=== PATIENT | male | born 1970 | race African-American/Black ===

== ENCOUNTER 2020-10-25 10:09 | Emergency (ER) | payer MEDICAID ==
[~2020-10-25] VITALS: Ht 172.7 cm; Wt 68.0 kg
[2020-10-25 10:30] VITALS: BP 148/68
[2020-10-25] MEDS ORDERED: METHOCARBAMOL 500 MG TAB PO ONE (11:00)
== END 2020-10-25 11:33 | disposition home or self-care (01) ==
LOC: ER 10:09
DX: M54.5 Low back pain (principal); Z95.1 Presence of aortocoronary bypass graft

== ENCOUNTER 2021-08-14 08:49 | Emergency (ER) | payer MEDICAID ==
[~2021-08-14] VITALS: Ht 172.7 cm; Wt 65.8 kg
[2021-08-14] MEDS ORDERED: cloNIDine HCL 0.1 MG TAB PO ONE (09:00)
[2021-08-14] MEDS ORDERED: HYDROcodone-ACET 5/325MG TAB PO ONE (09:45)
[2021-08-14 11:03] VITALS: BP 128/62
== END 2021-08-14 11:45 | disposition home or self-care (01) ==
LOC: ER 08:49
DX: M16.11 Unilateral primary osteoarthritis, right hip (principal); I10 Essential (primary) hypertension; Z95.1 Presence of aortocoronary bypass graft
CPT/HCPCS: 73502

== ENCOUNTER 2021-09-19 11:11 | Emergency (ER) | payer MEDICAID ==
[~2021-09-19] VITALS: Ht 172.7 cm; Wt 65.8 kg
[2021-09-19 11:13] VITALS: BP 121/101
[2021-09-19] MEDS ORDERED: SODIUM CHLORIDE 0.9% 1,000 ML IV ONE (12:15)
[2021-09-19 12:27] LABS: Basophils # (auto) 0.1 10 ^3/uL (0-0.2); Eosinophils # (auto) 0 10 ^3/uL (0-0.8); Eosinophils % (auto) 0.8 % (0.0-7.0); Hemoglobin 13.8 g/dL (13.5-17.5); Nucleated Red Blood Cells % 0.1 %
[2021-09-19 12:37] LABS: Hematocrit 41.5 % (41.0-53.0); Lymphocytes # (auto) 0.8 10 ^3/uL (0.4-5.4); Lymphocytes % (auto) 13.1 % (10.0-50.0); Mean Corpuscular Hemoglobin 29.1 pg (28.0-32.0); Mean Corpuscular Hgb Conc. 33.2 g/dL (32.0-36.0); Mean Corpuscular Volume 87.5 fL (80.0-100.0); Monocytes # (auto) 0.8 10 ^3/uL (0-1.3); Monocytes % (auto) 13.2 % (0.0-12.0); Neutrophils # (auto) 4.3 10 ^3/uL (1.6-8.6); Neutrophils % (auto) 71.9 % (37.0-80.0); Red Blood Cells 4.74 10^6/uL (4.5-5.90); Red Cell Distribution Width 14.7 % (11.8-14.3)
[2021-09-19 13:50] LABS: Potassium 4.3 mmol/L (3.5-5.1)
[2021-09-19 13:54] LABS: BUN/Creatinine Ratio 8.7; Bilirubin, Total 0.4 mg/dL (0.2-1.0); Total Protein 8.2 g/dL (6.4-8.2)
[2021-09-19 14:22] LABS: Urine Bacteria NONE SEEN /hpf (None Seen); Urine Blood Negative /uL (Negative); Urine Mucus FEW (None Seen); Urine Specific Gravity 1.024 (1.001-1.035); Urine WBC <1 /hpf (0 - 3)
== END 2021-09-19 16:29 | disposition home or self-care (01) ==
LOC: ER 11:11
DX: B34.9 Viral infection, unspecified (principal); I10 Essential (primary) hypertension; Z95.1 Presence of aortocoronary bypass graft; Z20.822 Contact with and (suspected) exposure to COVID-19
CPT/HCPCS: 36415; 71046; 80053; 81001; 84484; 85025; 87426; 93005; 96360; 96361; 99285; J7030

== ENCOUNTER 2021-11-04 00:15 | Inpatient (IN) | payer MEDICARE, MEDICAID ==
[~2021-11-04] VITALS: Ht 172.7 cm; Wt 65.3 kg
[2021-11-04 01:27] LABS: Basophils # (auto) 0.1 10 ^3/uL (0-0.2); Basophils % (auto) 1.6 % (0.0-2.0); Eosinophils # (auto) 0.1 10 ^3/uL (0-0.8); Eosinophils % (auto) 0.9 % (0.0-7.0); Hematocrit 40.6 % (41.0-53.0); Lymphocytes # (auto) 3.3 10 ^3/uL (0.4-5.4); Lymphocytes % (auto) 46.1 % (10.0-50.0); Mean Corpuscular Hemoglobin 30.1 pg (28.0-32.0); Mean Corpuscular Hgb Conc. 34.5 g/dL (32.0-36.0); Mean Corpuscular Volume 87.3 fL (80.0-100.0); Monocytes # (auto) 0.6 10 ^3/uL (0-1.3); Monocytes % (auto) 7.7 % (0.0-12.0); Neutrophils # (auto) 3.1 10 ^3/uL (1.6-8.6); Neutrophils % (auto) 43.7 % (37.0-80.0); Nucleated Red Blood Cells % 0.1 %; Red Blood Cells 4.65 10^6/uL (4.5-5.90); Red Cell Distribution Width 14.6 % (11.8-14.3); White Blood Cell 7.2 10^3/uL (4.4-10.8)
[2021-11-04 01:44] LABS: INR 0.94 (0.9-1.15); Partial Thromboplastin Time 27.8 sec (24.6-33.4)
[2021-11-04] MEDS ORDERED: SODIUM CHLORIDE 0.9% 500 ML IV ONE (01:45)
[2021-11-04] MEDS ORDERED: NITROGLYCERIN 0.4 MG SL TAB SL ONE (01:45)
[2021-11-04] MEDS ORDERED: ASPirin 325 MG TAB PO ONE (01:45)
[2021-11-04 01:50] LABS: Albumin 4.1 g/dL (3.4-5.0); BUN/Creatinine Ratio 12.5; Calcium 9.3 mg/dL (8.5-10.1); Magnesium 2.1 mg/dL (1.6-2.6); Potassium 4.1 mmol/L (3.5-5.1)
[2021-11-04 01:53] LABS: Bilirubin, Total 0.4 mg/dL (0.2-1.0); Total Protein 7.7 g/dL (6.4-8.2)
[2021-11-04] MEDS ORDERED: HEPARIN SODIUM (PORCINE) 5000 UNITS/ML 1ML VIAL IV ONE (10:00)
[2021-11-04] MEDS ORDERED: HEPARIN DRIP/D5W 100UNITS/ML 250 ML IV SCH (10:00)
[2021-11-04] MEDS ORDERED: ONDANSETRON HCL 4 MG/2 ML VIAL IV PRN (10:15)
[2021-11-04] MEDS ORDERED: DOCUSATE SOD 100 MG CAP PO PRN (10:15)
[2021-11-04] MEDS ORDERED: ACETAMINOPHEN 325 MG TAB PO PRN (10:15)
[2021-11-04] MEDS ORDERED: NITROGLYCERIN 0.4 MG SL TAB SL PRN (10:15)
[2021-11-04] MEDS ORDERED: MORPHINE SULFATE INJ 2 MG/ml SYRG IV PRN (10:15)
[2021-11-04 11:20] LABS: INR 0.98 (0.9-1.15); Partial Thromboplastin Time 28.5 sec (24.6-33.4)
[2021-11-04 11:38] LABS: Urine Bacteria NONE SEEN /hpf (None Seen); Urine Blood Negative /uL (Negative); Urine Mucus FEW (None Seen); Urine Specific Gravity 1.018 (1.001-1.035); Urine WBC <1 /hpf (0 - 3)
[2021-11-04 14:16] LABS: Basophils # (auto) 0 10 ^3/uL (0-0.2); Basophils % (auto) 0.7 % (0.0-2.0); Eosinophils # (auto) 0.1 10 ^3/uL (0-0.8); Eosinophils % (auto) 1.2 % (0.0-7.0); Hemoglobin 13.4 g/dL (13.5-17.5); Lymphocytes # (auto) 2.2 10 ^3/uL (0.4-5.4); Lymphocytes % (auto) 33.6 % (10.0-50.0); Mean Corpuscular Hemoglobin 28.6 pg (28.0-32.0); Mean Corpuscular Hgb Conc. 32.7 g/dL (32.0-36.0); Mean Corpuscular Volume 87.7 fL (80.0-100.0); Monocytes # (auto) 0.6 10 ^3/uL (0-1.3); Monocytes % (auto) 9.5 % (0.0-12.0); Neutrophils # (auto) 3.6 10 ^3/uL (1.6-8.6); Red Blood Cells 4.68 10^6/uL (4.5-5.90); Red Cell Distribution Width 14.6 % (11.8-14.3); White Blood Cell 6.5 10^3/uL (4.4-10.8)
[2021-11-04] MEDS: SODIUM CHLOR 0.9% PF (SALINE LOCK) 10ML VIAL/SYR IV SCH ×2 (14:29→23:06)
[2021-11-04 18:50] LABS: INR 0.98 (0.9-1.15)
[2021-11-04] MEDS: HEPARIN DRIP/D5W 100UNITS/ML 250 ML IV SCH (19:58)
[2021-11-04 21:39] VITALS: BP 149/96
[2021-11-04 22:00] VITALS: BP 149/96
[2021-11-04] MEDS: HYDROcodone-ACET 5/325MG TAB PO PRN (23:07)
[2021-11-05] VITALS (7 sets, daily range): BP systolic 130–167; BP diastolic 66–88
[2021-11-05] MEDS ORDERED: CARV3.1240 PO (00:17)
[2021-11-05] MEDS ORDERED: ASPI1TAB20 PO (00:17)
[2021-11-05] MEDS ORDERED: PRAV20TA3 GT (00:17)
[2021-11-05] MEDS ORDERED: CLOP75TA70 PO (00:17)
[2021-11-05] MEDS ORDERED: LOSA25TA38 PO (00:18)
[2021-11-05 02:12] LABS: Partial Thromboplastin Time 52.4 sec (24.6-33.4)
[2021-11-05] MEDS: SODIUM CHLOR 0.9% PF (SALINE LOCK) 10ML VIAL/SYR IV SCH ×3 (06:38→23:01)
[2021-11-05 09:36] LABS: INR 1.03 (0.9-1.15); Partial Thromboplastin Time 53.2 sec (24.6-33.4)
[2021-11-05] MEDS ORDERED: ATORVASTATIN 20 MG TAB PO ONE (09:45)
[2021-11-05] MEDS: ASPirin 81 mg TAB PO SCH (10:24)
[2021-11-05] MEDS: HEPARIN DRIP/D5W 100UNITS/ML 250 ML IV SCH (10:27)
[2021-11-05 10:39] LABS: Basophils # (auto) 0.1 10 ^3/uL (0-0.2); Basophils % (auto) 0.9 % (0.0-2.0); Eosinophils # (auto) 0.1 10 ^3/uL (0-0.8); Eosinophils % (auto) 1.2 % (0.0-7.0); Hematocrit 41.6 % (41.0-53.0); Hemoglobin 13.6 g/dL (13.5-17.5); Lymphocytes # (auto) 2.5 10 ^3/uL (0.4-5.4); Lymphocytes % (auto) 43.5 % (10.0-50.0); Mean Corpuscular Hemoglobin 28.8 pg (28.0-32.0); Mean Corpuscular Hgb Conc. 32.8 g/dL (32.0-36.0); Mean Corpuscular Volume 87.9 fL (80.0-100.0); Monocytes # (auto) 0.5 10 ^3/uL (0-1.3); Monocytes % (auto) 9.1 % (0.0-12.0); Neutrophils # (auto) 2.6 10 ^3/uL (1.6-8.6); Neutrophils % (auto) 45.3 % (37.0-80.0); Red Blood Cells 4.73 10^6/uL (4.5-5.90); Red Cell Distribution Width 14.8 % (11.8-14.3); White Blood Cell 5.8 10^3/uL (4.4-10.8)
[2021-11-05 10:47] LABS: Calcium 8.8 mg/dL (8.5-10.1); Potassium 3.8 mmol/L (3.5-5.1)
[2021-11-05 10:51] LABS: BUN/Creatinine Ratio 10.8
[2021-11-05] MEDS ORDERED: LABETALOL HCL 5 MG/ML 4ML SYRINGE IV PRN (13:30)
[2021-11-05] MEDS ORDERED: CARVEDILOL 3.125 MG TAB PO ONE (13:30)
[2021-11-05 15:30] LABS: INR 1.03 (0.9-1.15); Partial Thromboplastin Time 46.1 sec (24.6-33.4)
[2021-11-05] MEDS ORDERED: HEPARIN DRIP/D5W 100UNITS/ML 250 ML IV SCH (16:45)
[2021-11-05] MEDS ORDERED: ATORVASTATIN 20 MG TAB PO SCH (22:00)
[2021-11-05] MEDS: HYDROcodone-ACET 5/325MG TAB PO PRN (22:26)
[2021-11-05] MEDS: CARVEDILOL 3.125 MG TAB PO SCH (23:02)
[2021-11-06 05:43] LABS: Basophils # (auto) 0.1 10 ^3/uL (0-0.2); Basophils % (auto) 0.9 % (0.0-2.0); Eosinophils # (auto) 0.1 10 ^3/uL (0-0.8); Eosinophils % (auto) 1.3 % (0.0-7.0); Hemoglobin 13.6 g/dL (13.5-17.5); Mean Corpuscular Hemoglobin 28.9 pg (28.0-32.0); Mean Corpuscular Hgb Conc. 33.1 g/dL (32.0-36.0); Mean Corpuscular Volume 87.3 fL (80.0-100.0); Monocytes # (auto) 0.6 10 ^3/uL (0-1.3); Monocytes % (auto) 9.4 % (0.0-12.0); Neutrophils # (auto) 2.4 10 ^3/uL (1.6-8.6); Neutrophils % (auto) 39.4 % (37.0-80.0); Nucleated Red Blood Cells % 0.1 %; Red Blood Cells 4.69 10^6/uL (4.5-5.90); Red Cell Distribution Width 14.3 % (11.8-14.3); White Blood Cell 6.2 10^3/uL (4.4-10.8)
[2021-11-06 06:02] LABS: Albumin 3.7 g/dL (3.4-5.0); BUN/Creatinine Ratio 14.8; Calcium 8.5 mg/dL (8.5-10.1); Potassium 3.7 mmol/L (3.5-5.1)
[2021-11-06 06:05] LABS: Bilirubin, Total 0.5 mg/dL (0.2-1.0)
[2021-11-06] MEDS: SODIUM CHLOR 0.9% PF (SALINE LOCK) 10ML VIAL/SYR IV SCH (06:40)
[2021-11-06 08:40] LABS: INR 1.03 (0.9-1.15); Partial Thromboplastin Time 44.4 sec (24.6-33.4)
[2021-11-06 09:00] VITALS: BP 131/73
[2021-11-06] MEDS: ASPirin 81 mg TAB PO SCH (11:39)
[2021-11-06] MEDS: CARVEDILOL 3.125 MG TAB PO SCH (11:40)
[2021-11-06 12:50] VITALS: BP 131/73
[2021-11-06 12:59] VITALS: BP 131/73
== END 2021-11-06 14:23 | disposition home or self-care (01) | DRG 282 ==
LOC: ER 00:15 → TELE 10:14 → TELE-WESTW 21:39
PROVIDERS: ADMIT Internal Medicine; ATTEND Internal Medicine
DX: I24.9 Acute ischemic heart disease, unspecified (principal); I21.A1 Myocardial infarction type 2; I25.10 Atherosclerotic heart disease of native coronary artery without angina pectoris; I10 Essential (primary) hypertension; Z20.822 Contact with and (suspected) exposure to COVID-19; E78.00 Pure hypercholesterolemia, unspecified; F17.200 Nicotine dependence, unspecified, uncomplicated; I25.2 Old myocardial infarction; Z95.1 Presence of aortocoronary bypass graft; Z79.899 Other long term (current) drug therapy
CPT/HCPCS: 36415; 71045; 80048; 80053; 80061; 81001; 83036; 83735; 84443; 84484; 85025; 85610; 85730; 93005; 93306; 96361; 96374; G0378

== ENCOUNTER 2021-11-30 17:33 | Emergency (ER) | payer MEDICARE, MEDICAID ==
[~2021-11-30] VITALS: Ht 172.7 cm; Wt 63.6 kg
[~2021-11-30 17:33] MED LIST: ASPI1TAB20 PO; CARV3.1240 PO; CLOP75TA70 PO; LOSA25TA38 PO; PRAV20TA3 GT
[2021-11-30 19:03] LABS: Basophils # (auto) 0 10 ^3/uL (0-0.2); Basophils % (auto) 0.7 % (0.0-2.0); Eosinophils # (auto) 0.1 10 ^3/uL (0-0.8); Eosinophils % (auto) 1.2 % (0.0-7.0); Hemoglobin 12.7 g/dL (13.5-17.5); Lymphocytes # (auto) 2.4 10 ^3/uL (0.4-5.4); Lymphocytes % (auto) 36.8 % (10.0-50.0); Mean Corpuscular Hemoglobin 28.5 pg (28.0-32.0); Mean Corpuscular Hgb Conc. 32.4 g/dL (32.0-36.0); Mean Corpuscular Volume 87.9 fL (80.0-100.0); Monocytes # (auto) 0.6 10 ^3/uL (0-1.3); Monocytes % (auto) 9.3 % (0.0-12.0); Neutrophils # (auto) 3.4 10 ^3/uL (1.6-8.6); Nucleated Red Blood Cells % 0.1 %; Red Blood Cells 4.44 10^6/uL (4.5-5.90); Red Cell Distribution Width 14.2 % (11.8-14.3); White Blood Cell 6.5 10^3/uL (4.4-10.8)
[2021-11-30 19:21] LABS: Potassium 3.6 mmol/L (3.5-5.1)
[2021-11-30 19:24] LABS: Bilirubin, Total 0.6 mg/dL (0.2-1.0); Total Protein 6.8 g/dL (6.4-8.2)
[2021-11-30] MEDS ORDERED: KETOROLAC TROMETH 30 MG/ML 1ML VIAL IV ONE (20:30)
[2021-11-30 21:10] VITALS: BP 167/85
== END 2021-11-30 20:33 | disposition home or self-care (01) ==
LOC: EDBD 17:33 → ER 17:33
DX: R07.89 Other chest pain (principal); I10 Essential (primary) hypertension; I25.10 Atherosclerotic heart disease of native coronary artery without angina pectoris; I25.2 Old myocardial infarction; E78.5 Hyperlipidemia, unspecified; Z95.1 Presence of aortocoronary bypass graft; Z79.01 Long term (current) use of anticoagulants; Z79.82 Long term (current) use of aspirin; Z79.899 Other long term (current) drug therapy
CPT/HCPCS: 36415; 71045; 80053; 84484; 85025; 93005; 96374; 99285; J1885

== ENCOUNTER 2022-01-09 05:24 | Emergency (ER) | payer MEDICARE, MEDICAID ==
[~2022-01-09] VITALS: Ht 172.7 cm; Wt 68.2 kg
[~2022-01-09 05:24] MED LIST changes: +AMOX500T86 PO
[2022-01-09] MEDS ORDERED: amLODIPine BESYLATE 5 MG TAB PO ONE (06:15)
[2022-01-09] MEDS ORDERED: cloNIDine HCL 0.1 MG TAB ONE (06:49)
[2022-01-09] MEDS ORDERED: cloNIDine HCL 0.1 MG TAB PO ONE ×2 (07:00)
[2022-01-09] MEDS ORDERED: MEPERIDINE HCL (50 MG/ML) 1 ML VIAL IM ONE (07:15)
[2022-01-09] MEDS ORDERED: PROMETHAZINE HCL 25 MG/ML 1ML IM ONE (07:15)
[2022-01-09 07:43] VITALS: BP 129/64
[2022-01-09] MEDS ORDERED: HYDR-4902 PO (08:30)
[2022-01-09] MEDS ORDERED: PRED20TA2 PO (08:30)
== END 2022-01-09 08:20 | disposition home or self-care (01) ==
LOC: ER 05:24
DX: G89.29 Other chronic pain (principal); M25.551 Pain in right hip; I10 Essential (primary) hypertension; I25.10 Atherosclerotic heart disease of native coronary artery without angina pectoris; I25.2 Old myocardial infarction; E78.5 Hyperlipidemia, unspecified; Z95.1 Presence of aortocoronary bypass graft; Z87.891 Personal history of nicotine dependence; Z79.82 Long term (current) use of aspirin; Z79.01 Long term (current) use of anticoagulants; Z79.899 Other long term (current) drug therapy
CPT/HCPCS: 73502; 96372; 99284; J2175; J2550

== ENCOUNTER 2022-01-15 20:31 | Emergency (ER) | payer MEDICARE, MEDICAID ==
[~2022-01-15] VITALS: Ht 172.7 cm; Wt 68.2 kg
[~2022-01-15 20:31] MED LIST changes: +HYDR-4902 PO; +PRED20TA2 PO
[2022-01-15] MEDS ORDERED: ASPirin 81 mg TAB PO ONE (20:45)
[2022-01-15 21:06] VITALS: BP 143/80
[2022-01-15 22:07] LABS: Basophils # (auto) 0.1 10 ^3/uL (0-0.2); Basophils % (auto) 1.5 % (0.0-2.0); Eosinophils # (auto) 0.1 10 ^3/uL (0-0.8); Eosinophils % (auto) 1.7 % (0.0-7.0); Hematocrit 40.8 % (41.0-53.0); Hemoglobin 13.8 g/dL (13.5-17.5); Lymphocytes # (auto) 3.2 10 ^3/uL (0.4-5.4); Lymphocytes % (auto) 41.5 % (10.0-50.0); Mean Corpuscular Hemoglobin 29.2 pg (28.0-32.0); Mean Corpuscular Hgb Conc. 33.8 g/dL (32.0-36.0); Mean Corpuscular Volume 86.4 fL (80.0-100.0); Monocytes # (auto) 0.6 10 ^3/uL (0-1.3); Monocytes % (auto) 8.3 % (0.0-12.0); Neutrophils # (auto) 3.6 10 ^3/uL (1.6-8.6); Nucleated Red Blood Cells % 0.1 %; Red Blood Cells 4.72 10^6/uL (4.5-5.90); Red Cell Distribution Width 14.5 % (11.8-14.3); White Blood Cell 7.7 10^3/uL (4.4-10.8)
[2022-01-15 22:23] LABS: Calcium 8.9 mg/dL (8.5-10.1)
[2022-01-15 22:26] LABS: BUN/Creatinine Ratio 16.1; Bilirubin, Total 0.4 mg/dL (0.2-1.0)
== END 2022-01-16 01:30 | disposition left against medical advice (07) ==
LOC: ER 20:33
DX: R07.89 Other chest pain (principal); E78.5 Hyperlipidemia, unspecified; I10 Essential (primary) hypertension; I25.2 Old myocardial infarction; Z87.891 Personal history of nicotine dependence
CPT/HCPCS: 36415; 71045; 80053; 83880; 84484; 85025; 85379; 93005

== ENCOUNTER 2022-08-23 20:19 | Emergency (ER) | payer MEDICAID, MEDICARE ==
[~2022-08-23] VITALS: Ht 172.7 cm; Wt 70.4 kg
[2022-08-23 20:58] LABS: Basophils # (auto) 0 10 ^3/uL (0-0.2); Basophils % (auto) 0.5 % (0.0-2.0); Eosinophils # (auto) 0.1 10 ^3/uL (0-0.8); Eosinophils % (auto) 0.9 % (0.0-7.0); Hematocrit 47.2 % (41.0-53.0); Hemoglobin 15.7 g/dL (13.5-17.5); Lymphocytes # (auto) 3.2 10 ^3/uL (0.4-5.4); Lymphocytes % (auto) 39.6 % (10.0-50.0); Mean Corpuscular Hemoglobin 28.5 pg (28.0-32.0); Mean Corpuscular Hgb Conc. 33.2 g/dL (32.0-36.0); Mean Corpuscular Volume 85.8 fL (80.0-100.0); Monocytes # (auto) 0.6 10 ^3/uL (0-1.3); Monocytes % (auto) 7.3 % (0.0-12.0); Neutrophils # (auto) 4.2 10 ^3/uL (1.6-8.6); Neutrophils % (auto) 51.7 % (37.0-80.0); Nucleated Red Blood Cells % 0.2 %; Red Cell Distribution Width 15.1 % (11.8-14.3); White Blood Cell 8.2 10^3/uL (4.4-10.8)
[2022-08-23 21:37] LABS: Albumin 4.7 g/dL (3.4-5.0)
[2022-08-23 21:42] LABS: BUN/Creatinine Ratio 10.4 (10.0-20.0); Bilirubin, Total 0.5 mg/dL (0.2-1.0); Total Protein 8.9 g/dL (6.4-8.2)
[2022-08-23] MEDS ORDERED: IOHEXOL 350 MG/ML 100ML IJ ONE (23:38)
[2022-08-23] MEDS ORDERED: MORPHINE SULFATE 4 MG/ML SYR/VIAL IV ONE (23:45)
[2022-08-23] MEDS ORDERED: ONDANSETRON HCL 4 MG/2 ML VIAL IV ONE (23:45)
[2022-08-24 01:50] VITALS: BP 140/67
[2022-08-24] MEDS ORDERED: CARV25TA55 PO (02:02)
== END 2022-08-24 02:26 | disposition home or self-care (01) ==
LOC: ER 20:19
DX: F41.9 Anxiety disorder, unspecified (principal); R07.89 Other chest pain; I25.810 Atherosclerosis of coronary artery bypass graft(s) without angina pectoris; E78.5 Hyperlipidemia, unspecified; I10 Essential (primary) hypertension; I25.2 Old myocardial infarction; Z87.891 Personal history of nicotine dependence
CPT/HCPCS: 36415; 71045; 71275; 80053; 83880; 84484; 85025; 93005; 96374; 96375; 99285; J2270; J2405; Q9967

== ENCOUNTER 2022-10-07 00:53 | Emergency (ER) | payer MEDICAID ==
[~2022-10-07] VITALS: Ht 182.9 cm; Wt 70.0 kg
[~2022-10-07 00:53] MED LIST changes: +CARV25TA55 PO; +LOSA25TA15 PO; -LOSA25TA38 PO
[2022-10-07 01:16] VITALS: BP 145/86
[2022-10-07 01:55] LABS: Basophils # (auto) 0 10 ^3/uL (0-0.2); Basophils % (auto) 0.4 % (0.0-2.0); Eosinophils # (auto) 0 10 ^3/uL (0-0.8); Eosinophils % (auto) 0.1 % (0.0-7.0); Hematocrit 37.3 % (41.0-53.0); Hemoglobin 12.7 g/dL (13.5-17.5); Lymphocytes # (auto) 1.3 10 ^3/uL (0.4-5.4); Lymphocytes % (auto) 13.2 % (10.0-50.0); Mean Corpuscular Hemoglobin 29.5 pg (28.0-32.0); Mean Corpuscular Hgb Conc. 34.1 g/dL (32.0-36.0); Mean Corpuscular Volume 86.5 fL (80.0-100.0); Monocytes # (auto) 0.3 10 ^3/uL (0-1.3); Monocytes % (auto) 2.9 % (0.0-12.0); Neutrophils # (auto) 7.9 10 ^3/uL (1.6-8.6); Neutrophils % (auto) 83.4 % (37.0-80.0); Nucleated Red Blood Cells % 0.1 %; Red Blood Cells 4.32 10^6/uL (4.5-5.90); Red Cell Distribution Width 14.9 % (11.8-14.3); White Blood Cell 9.4 10^3/uL (4.4-10.8)
[2022-10-07 02:02] LABS: Albumin 3.7 g/dL (3.4-5.0); BUN/Creatinine Ratio 14.7 (10.0-20.0); Calcium 9.3 mg/dL (8.5-10.1); Magnesium 2.2 mg/dL (1.6-2.6); Potassium 4.6 mmol/L (3.5-5.1)
[2022-10-07 02:03] LABS: INR 0.97 (0.9-1.15); Partial Thromboplastin Time 27.2 sec (24.6-33.4)
[2022-10-07 02:05] LABS: Bilirubin, Total 0.2 mg/dL (0.2-1.0); Total Protein 7.5 g/dL (6.4-8.2)
== END 2022-10-07 03:24 | disposition home or self-care (01) ==
LOC: EDUNIT# 00:53 → ER 00:53 → EDBD 00:53 → ER 03:24
DX: R07.89 Other chest pain (principal); I25.10 Atherosclerotic heart disease of native coronary artery without angina pectoris; I10 Essential (primary) hypertension; I25.2 Old myocardial infarction; Z95.1 Presence of aortocoronary bypass graft; Z98.61 Coronary angioplasty status; Z79.899 Other long term (current) drug therapy
CPT/HCPCS: 36415; 71045; 80053; 80320; 83735; 83880; 84484; 85025; 85379; 85610; 85730; 93005

== ENCOUNTER 2023-04-10 22:39 | Emergency (ER) | payer OTHER, MEDICAID ==
[~2023-04-10] VITALS: Ht 170.2 cm; Wt 77.3 kg
[2023-04-10 23:10] LABS: Basophils # (auto) 0.1 10 ^3/uL (0-0.2); Basophils % (auto) 0.8 % (0.0-2.0); Eosinophils # (auto) 0.2 10 ^3/uL (0-0.8); Eosinophils % (auto) 2.9 % (0.0-7.0); Hematocrit 39.8 % (41.0-53.0); Hemoglobin 13.2 g/dL (13.5-17.5); Lymphocytes # (auto) 2.3 10 ^3/uL (0.4-5.4); Lymphocytes % (auto) 35.8 % (10.0-50.0); Mean Corpuscular Hgb Conc. 33.2 g/dL (32.0-36.0); Mean Corpuscular Volume 84.4 fL (80.0-100.0); Monocytes # (auto) 0.5 10 ^3/uL (0-1.3); Monocytes % (auto) 7.5 % (0.0-12.0); Neutrophils # (auto) 3.4 10 ^3/uL (1.6-8.6); Red Blood Cells 4.72 10^6/uL (4.5-5.90); Red Cell Distribution Width 15.1 % (11.8-14.3); White Blood Cell 6.4 10^3/uL (4.4-10.8)
[2023-04-10 23:24] LABS: INR 0.99 (0.9-1.15); Partial Thromboplastin Time 27.3 SEC (24.5-34.5); Prothrombin Time 10.4 sec (9.3-11.8)
[2023-04-10 23:25] LABS: Alanine Aminotransferase 23 U/L (7-40); Albumin 4.6 g/dL (3.2-4.8); Alkaline Phosphatase 64 U/L (46-116); Anion Gap 11 (5-15); Aspartate Aminotransferase 12 U/L (13-40); BUN/Creatinine Ratio 10.2 (10.0-20.0); Bilirubin, Total 0.3 mg/dL (0.2-1.0); Blood Urea Nitrogen 9 mg/dL (9-23); Calcium 9.1 mg/dL (8.7-10.4); Carbon Dioxide 22 mmol/L (20-30); Chloride 106 mmol/L (98-107); Glucose 158 mg/dL (74-106); Magnesium 2.1 mg/dL (1.6-2.6); Potassium 3.4 mmol/L (3.5-5.1); Sodium 139 mmol/L (136-145)
[2023-04-11 03:00] VITALS: BP 165/77; TEMP 97.4
[2023-04-11 03:06] VITALS: PULSE 69; RESP 16; O2SAT 99
== END 2023-04-11 03:30 | disposition short-term general hospital (02) ==
LOC: EDBD 22:39 → ER 22:39
DX: R07.89 Other chest pain (principal); I25.9 Chronic ischemic heart disease, unspecified; I10 Essential (primary) hypertension; E78.5 Hyperlipidemia, unspecified; Z87.891 Personal history of nicotine dependence
CPT/HCPCS: 36415; 71045; 80053; 83735; 83880; 84484; 85025; 85610; 85730; 93005

== ENCOUNTER 2023-12-11 01:02 | Emergency (ER) | payer OTHER, MEDICAID ==
[~2023-12-11] VITALS: Ht 175.3 cm; Wt 86.2 kg
[~2023-12-11 01:02] MED LIST changes: +LOSA-533 PO; -LOSA25TA15 PO
[2023-12-11] MEDS ORDERED: ONDANSETRON HCL 4 MG/2 ML VIAL ONE (01:10)
[2023-12-11 02:36] VITALS: BP 138/71; PULSE 71; RESP 18; O2SAT 97
[2023-12-11 02:58] LABS: INR 1.01 (0.9-1.15); Partial Thromboplastin Time 29.1 SEC (24.5-34.5); Prothrombin Time 10.7 sec (9.3-11.8)
[2023-12-11 03:02] LABS: Alanine Aminotransferase 14 U/L (7-40); Alkaline Phosphatase 79 U/L (46-116); Anion Gap 5 (5-15); Aspartate Aminotransferase 9 U/L (13-40); BUN/Creatinine Ratio 7.8 (10.0-20.0); Bilirubin, Total 0.4 mg/dL (0.2-1.0); Blood Urea Nitrogen 8 mg/dL (9-23); Calcium 9.5 mg/dL (8.7-10.4); Carbon Dioxide 28 mmol/L (20-30); Chloride 106 mmol/L (98-107); Glucose 108 mg/dL (74-106); Potassium 3.9 mmol/L (3.5-5.1); Sodium 139 mmol/L (136-145); Total Protein 6.9 g/dL (5.7-8.2)
[2023-12-11 03:03] LABS: Albumin 4.3 g/dL (3.2-4.8); Magnesium 2.1 mg/dL (1.6-2.6)
[2023-12-11 03:08] LABS: Basophils # (auto) 0.1 10 ^3/uL (0-0.2); Basophils % (auto) 0.9 % (0.0-2.0); Eosinophils # (auto) 0.1 10 ^3/uL (0-0.8); Eosinophils % (auto) 2.1 % (0.0-7.0); Hematocrit 39.9 % (41.0-53.0); Hemoglobin 13.4 g/dL (13.5-17.5); Lymphocytes # (auto) 1.8 10 ^3/uL (0.4-5.4); Lymphocytes % (auto) 24.9 % (10.0-50.0); Mean Corpuscular Hemoglobin 28.7 pg (28.0-32.0); Mean Corpuscular Hgb Conc. 33.7 g/dL (32.0-36.0); Mean Corpuscular Volume 85.3 fL (80.0-100.0); Monocytes # (auto) 0.6 10 ^3/uL (0-1.3); Monocytes % (auto) 7.8 % (0.0-12.0); Neutrophils # (auto) 4.7 10 ^3/uL (1.6-8.6); Neutrophils % (auto) 64.3 % (37.0-80.0); Red Blood Cells 4.67 10^6/uL (4.5-5.90); Red Cell Distribution Width 15.4 % (11.8-14.3); White Blood Cell 7.2 10^3/uL (4.4-10.8)
== END 2023-12-11 02:00 | disposition left against medical advice (07) ==
LOC: ER 01:02
DX: R07.89 Other chest pain (principal); F12.10 Cannabis abuse, uncomplicated; E78.5 Hyperlipidemia, unspecified; I10 Essential (primary) hypertension; Z87.891 Personal history of nicotine dependence
CPT/HCPCS: 36415; 80053; 83735; 83880; 84484; 85025; 85610; 85730; 99283; J2405

== ENCOUNTER 2024-07-31 00:35 | Emergency (ER) | payer OTHER, MEDICAID ==
[~2024-07-31] VITALS: Ht 172.7 cm; Wt 80.9 kg
--- NOTE | 2024-07-31 00:57 | ED.PDOC ---
History of Present Illness HPI Comments 54 y/o M, with a Hx of CAD, 3xCABG, HLD, HTN, NV, and PTCA, presents with c/o nonradiating, sternal chest pain and shortness of breath, today. Patient endorses on sudden and unprovoked onset of symptoms 2x hours prior to ED arrival. He reports on pain being "heavy" in quality and rates it a 4/10 in severity. Patient states on walking around for an extended period of time, while at a "[place]," last night, and feeling pain onset soon after leaving vicinity. Patient reports no further relevant or pertinent information, such as recent stressors, injuries, or sick contact. He denies any palpitations, left-arm pain, nausea, vomiting, cough, fever, chills, or other associated symptoms or mo difiers at this time. Chief Complaint: Chest Pain Time Seen by MD: 00:45 Primary Care Provider: NONE Reviewed Notes: Nurses Notes, Medications, Allergies Allergies: Coded Allergies: No Known Drug Allergy (Verified Allergy, Unknown, 10/25/20) Home Meds Active Scripts Carvedilol (Carvedilol) 25 Mg Tab, 1 TAB PO BID, #90 TAB 1 Refill Prov:CAMILLE OTT 08/24/22 Prednisone (Prednisone) 20 Mg Tab, 40 MG PO DAILY, #20 MG Prov:JOSHUA MONTES 01/09/22 Hydrocodone-Acetaminophen (Hydrocodone Bitartrate/AC 5-325 mg) 1 Tab Tab, 1 TAB PO BID, #14 TAB Prov:JOSHUA MONTES 01/09/22 Amoxicillin & Pot Clavulanate (Augmentin) 500 Mg Tab, 1 TAB PO BID for 7 Days, #14 TAB Prov:SOWMYA GONCALVES MD 12/27/21 Reported Medications Losartan Potassium (Losartan Potassium) 25 Mg Tab, 25 MG PO, TAB 11/05/21 Clopidogrel Bisulfate (CLOPIDOGREL) 75 Mg Tab, 75 MG PO DAILY, TAB 11/05/21 Aspirin (Aspir-81) 81 Mg Tab, 81 MG PO, TAB 11/05/21 Carvedilol (Carvedilol) 3.125 Mg Tab, 3.125 MG PO BID, TAB 11/05/21 Pravastatin Sodium (PRAVACHOL TABLET) 20 Mg Tb, 20 MG GT, TAB 11/05/21 Information Source: Patient Mode of Arrival: Ambulatory Severity: Moderate Timing: Hours Duration: Since onset Prehospital treatment: None Past Medical History PAST MEDICAL HISTORY: CAD, High Lipids, HTN, NV Surgical History: CABG (3x -2019), PTCA (-2023) Family History Family History: Reviewed,noncontributory to illness Social History Smoker: Quit Greater Than 1 Year Alcohol: Occasionally Drugs: Marijuana Lives In: Home All Other Systems: Reviewed and Negative (Comprehensive systems review obtained and negative except for what is stated in the HPI.) Physical Exam General Appearance: Mild Distress, Normal HEENT: Normal ENT Inspection, Pharynx Normal, TMs Normal Neck: Full Range of Motion, Non-Tender, Normal, Normal Inspection Respiratory: Chest Non-Tender, Lungs Clear, No Accessory Muscle Use, No Respiratory Distress, Normal Breath Sounds Cardiovascular: No Edema, No JVD, No Murmur, No Gallop, Normal Peripheral Pulses, Regular Rate/Rhythm Breast Exam: Deferred Gastrointestinal: No Organomegaly, Non Tender, No Pulsatile Mass, Normal Bowel Sounds, Soft Genitalia: Deferred Pelvic: Deferred Rectal: Deferred Extremities: No calf tenderness, Normal capillary refill, Normal inspection, Normal range of motion, Non-tender, No pedal edema Musculoskeletal : Apperance: Normal Neurologic: Alert, foot miter operator II-XII nml as Tested, No Motor Deficits, Normal Affect, Normal Mood, No Sensory Deficits Cerebellar Function: Normal Reflexes: Normal Skin: Dry, Normal Color, Warm, Wounds (midline anterior chest wall CABG scar) Lymphatic: No Adenopathy Was a procedure done? Was a procedure done?: No EKG EKG : Pulse Rate (adult): 68 [place]: Normal Cardiac Rhythm: NSR Block: None Hypertrophy: None ST: Normal Differential Dx Considerations may include: NV, PE, ACS, URI, viral syndrome, PNA, angina, costochondritis, pericarditis, gastritis, among others X-Ray, Labs, Meds, VS Vital Signs Date Time Temp Pulse Resp B/P (MAP) Pulse Ox O2 Delivery O2 Flow Rate FiO2 07/31/24 01:35 63 07/31/24 00:58 65 07/31/24 00:58 98.8 65 18 183/80 (114) 96 98.8 07/31/24 00:57 68 07/31/24 00:42 68 Lab Test 07/31/24 01:51 07/31/24 00:45 Range/Units Troponin I High Sensitivity 8 7 </=54 ng/L White Blood Count 6.5 4.4-10.8 10^3/uL Red Blood Count 4.70 4.5-5.90 10^6/uL Hemoglobin 13.4 L 13.5-17.5 g/dL Hematocrit 39.7 L 41.0-53.0 % Mean Corpuscular Volume 84.5 80.0-100.0 fL Mean Corpuscular Hemoglobin 28.4 28.0-32.0 pg Mean Corpuscular Hemoglobin Concent 33.7 32.0-36.0 g/dL Red Cell Distribution Width 15.1 H 11.8-14.3 % Platelet Count 212 140-450 10^3/uL Mean Platelet Volume 7.1 6.9-10.8 fL Neutrophils (%) (Auto) 47.3 37.0-80.0 % Lymphocytes (%) (Auto) 40.3 10.0-50.0 % Monocytes (%) (Auto) 8.9 0.0-12.0 % Eosinophils (%) (Auto) 2.4 0.0-7.0 % Basophils (%) (Auto) 1.1 0.0-2.0 % Neutrophils # (Auto) 3.1 1.6-8.6 10 ^3/uL Lymphocytes # (Auto) 2.6 0.4-5.4 10 ^3/uL Monocytes # (Auto) 0.6 0-1.3 10 ^3/uL Eosinophils # (Auto) 0.2 0-0.8 10 ^3/uL Basophils # (Auto) 0.1 0-0.2 10 ^3/uL Nucleated Red Blood Cells 0.0 % Prothrombin Time 10.4 9.3-11.8 sec Prothrombin Time INR 0.98 0.9-1.15 Activated Partial Thromboplast Time 26.3 24.5-34.5 SEC Sodium Level 139 136-145 mmol/L Potassium Level 3.9 3.5-5.1 mmol/L Chloride Level 108 H 98-107 mmol/L Carbon Dioxide Level 25 20-31 mmol/L Anion Gap 6 5-15 Blood Urea Nitrogen 10 9-23 mg/dL Creatinine 0.97 0.700-1.30 mg/dL Glomerular Filtration Rate Calc 92 >90 mL/min BUN/Creatinine Ratio 10.3 10.0-20.0 Serum Glucose 147 H 74-106 mg/dL Calcium Level 9.8 8.7-10.4 mg/dL Total Bilirubin 0.4 0.2-1.0 mg/dL Aspartate Amino Transferase (AST) 13 13-40 U/L Alanine Aminotransferase (ALT) 20 7-40 U/L Alkaline Phosphatase 71 46-116 U/L Total Protein 7.3 5.7-8.2 g/dL Albumin 4.8 3.2-4.8 g/dL Current Medications Medications (Trade) Dose Ordered Sig/Anita Route Start Time Stop Time Status Last Admin Aspirin 162 mg ONCE ONCE PO 07/31/24 01:00 07/31/24 01:01 DC 07/31/24 01:23 Time of 1ST Reevaluation: 01:15 Reevaluation 1ST: Unchanged Patient Education/Counseling: Diagnosis, Treatment Family Education/Counseling: No Family Present Additional Information Previous medical encounters reviewed: January 08, 2024 and December 11, 2023 encounter for generalized weakness and chest pain, respectively The following tests were ordered, and results were reviewed by me: CXR, EKG, PTPTT, CMP, CBC, troponin Additional Information was gathered from interviewing the following independent historians: n/a I reviewed and agreed with the following test results read by other providers: CXR I discussed treatment and results with medical personnel and: Patient Departure 1 Departure Time of Disposition: :23 Impression: Primary Impression: Acute coronary syndrome Disposition: ADMITTED INPATIENT Admit to: [facility] Condition: Guarded Discharged With: Self Comments Chest Pain in Patient with History of CAD Chief Complaint: Chest pain and shortness of breath History of Present Illness: 54-year-old male with significant cardiac history including CAD s/p CABG in 2019 and multiple cardiac stents one year ago presents with pressure-like chest pain and shortness of breath for the past 4 hours. Patient has known history of hype rtension, prior myocardial infarction, and hyperlipidemia. Review of Systems: Cardiovascular: Positive for chest pressure and dyspnea All other systems reviewed and negative Medications: Current medications not documented in on air director Allergies: No known allergies documented Past Medical History: 1. Coronary artery disease 2. Hypertension 3. Previous myocardial infarction 4. Hyperlipidemia Past Surgical History: 1. Triple bypass surgery (05/2019) 2. Multiple cardiac stents placement (2023) Lab Results: CBC: - WBC: 6.5 (normal) - Hemoglobin: 13 - Hematocrit: 40 - Platelets: 212 Cardiac Enzymes: - Initial troponins: 0.07-0.08 (normal) Chemistry Panel: Unremarkable Imaging and Other Relevant Results: EKG: Normal sinus rhythm, no ST elevations or depressions Chest X-ray: No acute pathology Medical Decision Making: Summary Statement: 54-year-old male with extensive cardiac history presenting with acute onset chest pain and shortness of breath, with currently normal cardiac biomarkers and EKG. Problem List: 1. Acute chest pain 2. Known CAD s/p CABG and stents 3. Hypertension 4. Hyperlipidemia Differential Diagnosis: 1. Acute Coronary Syndrome 2. Unstable Angina 3. NSTEMI 4. Stable Angina 5. Pulmonary Embolism ED Course: Patient received aspirin. Given significant cardiac history and presenting symptoms, arrangement made for transfer to [facility] for further cardiac monitoring and workup. [employer] authorization number: [id number] Assessment and Plan: 1. Acute Coronary Syndrome: - Transfer to [facility] for further cardiac monitoring and evaluation - Aspirin administered in ED - Current troponins negative but warrant serial monitoring 2. Disposition: - Transfer to [facility] - Authorization number: [id number] Billing Information: ICD-10: I20.0 - Unstable angina ICD-10: I25.10 - Atherosclerotic heart disease of [place] coronary artery ICD-10: I10 - Essential (primary) hypertension Critical Care Note Critical Care Time?: Yes (35 min-critical care time only) Critical care comment: Total critical care time: Approximately 36 minutes Due to a high probability of clinically significant, life threatening deterioration, the patient required my highest level of preparedness to intervene emergently and I personally spent this critical care time directly and personally managing the patient. This critical care time included obtaining a history; examining the patient; pulse oximetry; ordering and review of studies; arranging urgent treatment with development of a management plan; evaluation of patient's response to treatment; frequent reassessment; and, discussions with other providers. This critical care time was performed to assess and manage the high probability of imminent, life-threatening deterioration that could result in multi-organ failure. It was exclusive of separately billable procedures and treating other patients. Stability Stability form required: No Heart Score Heart Score: Heart Score Response (Comments) Value History Highly Suspicious 2 EKG Normal 0 Age 45-64 1 Risk Factors >3 or Hx ASHD 2 Troponin Normal limit 0 Total 5 I personally scribed for TRUDY RIVAS MD ([email or web address]) on 07/31/24 at 00:57. Electronically submitted by Angel Foreman ([email or web address]). TRUDY RIVAS MD Jul 31, 2024 00:57
[2024-07-31 01:06] LABS: Basophils # (auto) 0.1 10 ^3/uL (0-0.2); Basophils % (auto) 1.1 % (0.0-2.0); Eosinophils # (auto) 0.2 10 ^3/uL (0-0.8); Eosinophils % (auto) 2.4 % (0.0-7.0); Hematocrit 39.7 % (41.0-53.0); Hemoglobin 13.4 g/dL (13.5-17.5); Lymphocytes # (auto) 2.6 10 ^3/uL (0.4-5.4); Lymphocytes % (auto) 40.3 % (10.0-50.0); Mean Corpuscular Hemoglobin 28.4 pg (28.0-32.0); Mean Corpuscular Hgb Conc. 33.7 g/dL (32.0-36.0); Mean Corpuscular Volume 84.5 fL (80.0-100.0); Monocytes # (auto) 0.6 10 ^3/uL (0-1.3); Monocytes % (auto) 8.9 % (0.0-12.0); Neutrophils # (auto) 3.1 10 ^3/uL (1.6-8.6); Neutrophils % (auto) 47.3 % (37.0-80.0); Platelet Count (auto) 212 10^3/uL (140-450); Red Cell Distribution Width 15.1 % (11.8-14.3); White Blood Cell 6.5 10^3/uL (4.4-10.8)
[2024-07-31 01:15] LABS: Alanine Aminotransferase 20 U/L (7-40); Albumin 4.8 g/dL (3.2-4.8); Alkaline Phosphatase 71 U/L (46-116); Anion Gap 6 (5-15); Aspartate Aminotransferase 13 U/L (13-40); BUN/Creatinine Ratio 10.3 (10.0-20.0); Bilirubin, Total 0.4 mg/dL (0.2-1.0); Blood Urea Nitrogen 10 mg/dL (9-23); Calcium 9.8 mg/dL (8.7-10.4); Carbon Dioxide 25 mmol/L (20-31); Potassium 3.9 mmol/L (3.5-5.1); Sodium 139 mmol/L (136-145); Total Protein 7.3 g/dL (5.7-8.2)
[2024-07-31 01:20] VITALS: PULSE 67; RESP 18; O2SAT 98
[2024-07-31 01:23] LABS: Chloride 108 mmol/L (98-107); Glucose 147 mg/dL (74-106); INR 0.98 (0.9-1.15); Partial Thromboplastin Time 26.3 SEC (24.5-34.5); Prothrombin Time 10.4 sec (9.3-11.8)
[2024-07-31] MEDS: ASPirin 81 mg TAB PO ONE (01:23)
--- NOTE | 2024-07-31 01:51 | DVH ---
CHEST RADIOGRAPH Indication: chest pain Technique: Single frontal view of the chest was obtained COMPARISON: XY CHEST PORTABLE on DOS: 04/10/23, XY CHEST PORTABLE on DOS: 10/07/22, XY CHEST XRAY 1 EW on DOS: 08/23/22, CHEST PORTABLE on DOS: 01/15/22, CXRP on DOS: 01/15/22 FINDINGS: Lines and Tubes: None Lungs: Clear Pleura: No effusion. No pneumothorax. Cardiomediastinal contours: Unremarkable. Median sternotomy sutures. Bones: Unremarkable IMPRESSION: 1. No acute disease.
--- NOTE | 2024-07-31 03:40 | ECG ---
[facility] Test Date: 2024-07-31 Test Time: 01:35:17 Pat Name: JANIS GARRISON Department: ED Room: Gender: M Paleontological Helper: ER : 1970 Requested By: TRUDY RIVAS Order Number: [id number] Reading MD: Geovani Madden Measurements Intervals [place] Rate: 63 P: 52 WV: 225 QRS: 69 QRSD: 94 T: 39 QT: 405 QTc: 415 Interpretive Statements Sinus rhythm Prolonged [place] interval Minimal ST elevation, anterior leads Electronically Signed On 07-31-2024 18:51:06 PDT by Geovani Madden Please click the below link to view image of tracing.
--- NOTE | 2024-07-31 03:40 | ECG ---
[facility] Test Date: 2024-07-31 Test Time: 03:35:51 Pat Name: JANIS GARRISON Department: ED Room: Gender: M Project Manager Industrial: ER : 1970 Requested By: TRUDY RIVAS Order Number: [id number] Reading MD: Geovani Madden Measurements Intervals [place] Rate: 61 P: 54 RI: 218 QRS: 69 QRSD: 94 T: 41 QT: 414 QTc: 417 Interpretive Statements Sinus rhythm Prolonged RI interval Minimal ST elevation, anterior leads Electronically Signed On 07-31-2024 18:51:23 PDT by Geovani Madden Please click the below link to view image of tracing.
[2024-07-31 06:12] VITALS: BP 158/55; PULSE 65; RESP 15; TEMP 98.1; O2SAT 98
--- NOTE | 2024-08-01 19:13 | ECG ---
[facility] Test Date: 2024-07-31 Test Time: 00:42:37 Pat Name: JANIS GARRISON Department: ER Room: Gender: M Sampler And Test Preparer: : 1970 Requested By: TRUDY RIVAS Order Number: [id number] Reading MD: Geovani Madden Measurements Intervals [place] Rate: 68 P: 36 [place]: 200 QRS: 61 QRSD: 92 T: 31 QT: 382 QTc: 407 Interpretive Statements Sinus rhythm Electronically Signed On 08-02-2024 14:19:22 PDT by Geovani Madden Please click the below link to view image of tracing.
== END 2024-07-31 06:33 | disposition short-term general hospital (02) ==
LOC: ER 00:35
DX: I24.9 Acute ischemic heart disease, unspecified (principal); I25.10 Atherosclerotic heart disease of native coronary artery without angina pectoris; E78.5 Hyperlipidemia, unspecified; I10 Essential (primary) hypertension; I25.2 Old myocardial infarction; F12.90 Cannabis use, unspecified, uncomplicated; Z79.899 Other long term (current) drug therapy; Z79.52 Long term (current) use of systemic steroids; Z79.02 Long term (current) use of antithrombotics/antiplatelets
CPT/HCPCS: 36415; 71045; 80053; 84484; 85025; 85610; 85730; 93005

== ENCOUNTER 2024-12-16 00:36 | Emergency (ER) | payer OTHER, MEDICAID ==
[~2024-12-16] VITALS: Ht 172.7 cm; Wt 81.8 kg
--- NOTE | 2024-12-16 01:03 | ED.PDOC ---
History of Present Illness HPI Comments 54 year old male presents to the ED via EMS with a chief complaint of LT arm weakness onset last night. Patient states he was asleep, woke up experiencing LT arm weakness with numbness/tingling sensation, lasted about 10 minutes. Patient has a PMHx of CAD, HLD, HTN, NC, CABG, STENTS -x4, states when he experienced similar symptoms is was cardiac related. Upon ED arrival, he noticed symptoms have improved. Patient is hypertensive, BP 177/90, ran out of Lisinopril 2 weeks ago. Denies dizziness, chest pain, shortness of breath, nausea, vomiting, diarrhea, headache, blurry vision. No other symptoms or modifying factors present at this time. Chief Complaint: Left Sided Weakness Time Seen by MD: 00:55 Primary Care Provider: NONE Reviewed Notes: Medications, Allergies Allergies: Coded Allergies: No Known Drug Allergy (Verified Allergy, Unknown, 10/25/20) Home Meds Active Scripts Carvedilol (Carvedilol) 25 Mg Tab, 1 TAB PO BID, #90 TAB 1 Refill Prov:CAMILLE OTT 08/24/22 Prednisone (Prednisone) 20 Mg Tab, 40 MG PO DAILY, #20 MG Prov:JOSHUA MONTES 01/09/22 Hydrocodone-Acetaminophen (Hydrocodone Bitartrate/AC 5-325 mg) 1 Tab Tab, 1 TAB PO BID, #14 TAB Prov:JOSHUA MONTES 01/09/22 Amoxicillin & Pot Clavulanate (Augmentin) 500 Mg Tab, 1 TAB PO BID for 7 Days, #14 TAB Prov:SOWMYA GONCALVES MD 12/27/21 Reported Medications Losartan Potassium (Losartan Potassium) 25 Mg Tab, 25 MG PO, TAB 11/05/21 Clopidogrel Bisulfate (CLOPIDOGREL) 75 Mg Tab, 75 MG PO DAILY, TAB 11/05/21 Aspirin (Aspir-81) 81 Mg Tab, 81 MG PO, TAB 11/05/21 Carvedilol (Carvedilol) 3.125 Mg Tab, 3.125 MG PO BID, TAB 11/05/21 Pravastatin Sodium (PRAVACHOL TABLET) 20 Mg Tb, 20 MG GT, TAB 11/05/21 Information Source: Patient, Emergency Med Personnel Mode of Arrival: EMS Severity: Moderate Timing: Hours Duration: Since onset Prehospital treatment: None Past Medical History PAST MEDICAL HISTORY: CAD, High Lipids, HTN, NC Surgical History: CABG, PTCA Family History Family History: Reviewed,noncontributory to illness Social History Smoker: Quit Greater Than 1 Year Alcohol: Occasionally Drugs: Marijuana Lives In: Home Constitutional: denies: chills, diaphoresis, fatigue, fever, malaise, sweats, weakness, others EENTM: denies: blurred vision, double vision, ear bleeding, ear discharge, ear drainage, ear pain, ear ringing, eye pain, eye redness, hearing loss, mouth pain, mouth swelling, nasal discharge, nose bleeding, nose congestion, nose pain, photophobia, tearing, throat pain, throat swelling, voice changes, others Respiratory: denies: cough, hemoptysis, orthopnea, SOB at rest, shortness of breath, SOB with excertion, stridor, wheezing, others Cardiovascular: denies: chest pain, dizzy spells, diaphoresis, Dyspnea on exertion, edema, irregular heart beat, left arm pain, lightheadedness, palpitations, PND, syncope, others Gastrointestinal: denies: abdomen distended, abdominal pain, blood streaked bowels, constipated, diarrhea, dysphagia, difficulty swallowing, hematemesis, melena, nausea, poor appetite, poor fluid intake, rectal bleeding, rectal pain, vomiting, others Genitourinary: denies: burning, dysuria, flank pain, frequency, hematuria, incontinence, penile discharge, penile sore, pain, testicle pain, testicle swelling, urgency, others Neurological: reports: left sided numbness (LT ARM); denies: dizziness, fainting, headache, left sided weakness, numbness, paresthesia, pre-existing deficit, right sided numbness, right sided weakness, seizure, speech problems, tingling, tremors, weakness, others Musculoskeletal: denies: back pain, gout, joint pain, joint swelling, muscle pain, muscle stiffness, neck pain, others Integumetry: denies: bruises, change in color, change in hair/nails, dryness, laceration, lesions, lumps, rash, wounds, others Allergic/Immunocompromised: denies: Difficulty Healing, Frequent Infections, Hives, Itching, others Hematologic/Lymphatic: denies: anemia, blood clots, easy bleeding, easy bruising, swollen glands, others Endocrine: denies: excessive hunger, excessive sweating, excessive thirst, excessive urination, flushing, intolerance to cold, intolerance to heat, unexpl ained weight gain, unexplained weight loss, others Psychiatric: denies: anxiety, bipolar disorder, depression, hopeless, panic disorder, schizophrenia, sleepless, suicidal, others All Other Systems: Reviewed and Negative Physical Exam General Appearance: Normal HEENT: Normal ENT Inspection, Pharynx Normal, TMs Normal Neck: Full Range of Motion, Non-Tender, Normal, Normal Inspection Respiratory: Chest Non-Tender, Lungs Clear, No Accessory Muscle Use, No Respiratory Distress, Normal Breath Sounds Cardiovascular: No Edema, No JVD, No Murmur, No Gallop, Normal Peripheral Pulses, Regular Rate/Rhythm Breast Exam: Deferred Gastrointestinal: No Organomegaly, Non Tender, No Pulsatile Mass, Normal Bowel Sounds, Soft Genitalia: Deferred Pelvic: Deferred Rectal: Deferred Extremities: No calf tenderness, Normal capillary refill, Normal inspection, Normal range of motion, Non-tender, No pedal edema Musculoskeletal : Apperance: Normal Neurologic: Alert, gas meter checker II-XII nml as Tested, No Motor Deficits, Normal Affect, Normal Mood, No Sensory Deficits Cerebellar Function: Normal Reflexes: Normal Skin: Dry, Normal Color, Warm Lymphatic: No Adenopathy Was a procedure done? Was a procedure done?: No Differential Dx Considerations may include: Differential diagnosis includes but not limited to stroke, myocardial infarction, coronary ischemia, peripheral neuropathy, paresthesias and others X-Ray, Labs, Meds, VS Vital Signs Date Time Temp Pulse Resp B/P (MAP) Pulse Ox O2 Delivery O2 Flow Rate FiO2 12/16/24 03:13 98.1 66 20 155/70 (98) 97 98.1 12/16/24 01:26 98.1 71 20 162/72 (102) 98 98.1 12/16/24 01:26 72 20 97 Room Air* 0 21 12/16/24 00:47 65 12/16/24 00:40 98.7 68 18 177/90 99 98.7 Lab Test 12/16/24 02:10 12/16/24 01:15 Range/Units Troponin I High Sensitivity 5 3 L </=54 ng/L White Blood Count 6.0 4.4-10.8 10^3/uL Red Blood Count 4.83 4.5-5.90 10^6/uL Hemoglobin 13.6 13.5-17.5 g/dL Hematocrit 39.4 L 41.0-53.0 % Mean Corpuscular Volume 81.6 80.0-100.0 fL Mean Corpuscular Hemoglobin 28.1 28.0-32.0 pg Mean Corpuscular Hemoglobin Concent 34.4 32.0-36.0 g/dL Red Cell Distribution Width 15.0 H 11.8-14.3 % Platelet Count 231 140-450 10^3/uL Mean Platelet Volume 7.1 6.9-10.8 fL Neutrophils (%) (Auto) 48.7 37.0-80.0 % Lymphocytes (%) (Auto) 38.4 10.0-50.0 % Monocytes (%) (Auto) 9.6 0.0-12.0 % Eosinophils (%) (Auto) 2.2 0.0-7.0 % Basophils (%) (Auto) 1.1 0.0-2.0 % Neutrophils # (Auto) 2.9 1.6-8.6 10 ^3/uL Lymphocytes # (Auto) 2.3 0.4-5.4 10 ^3/uL Monocytes # (Auto) 0.6 0-1.3 10 ^3/uL Eosinophils # (Auto) 0.1 0-0.8 10 ^3/uL Basophils # (Auto) 0.1 0-0.2 10 ^3/uL Nucleated Red Blood Cells 0.1 % Sodium Level 142 136-145 mmol/L Potassium Level 3.8 3.5-5.1 mmol/L Chloride Level 107 98-107 mmol/L Carbon Dioxide Level 24 20-31 mmol/L Anion Gap 11 5-15 Blood Urea Nitrogen 10 9-23 mg/dL Creatinine 1.08 0.700-1.30 mg/dL Glomerular Filtration Rate Calc 81 >90 mL/min BUN/Creatinine Ratio 9.3 L 10.0-20.0 Serum Glucose 97 74-106 mg/dL Calcium Level 9.3 8.7-10.4 mg/dL Total Bilirubin 0.3 0.2-1.0 mg/dL Aspartate Amino Transferase (AST) 17 13-40 U/L Alanine Aminotransferase (ALT) 17 7-40 U/L Alkaline Phosphatase 75 46-116 U/L Total Protein 7.5 5.7-8.2 g/dL Albumin 4.7 3.2-4.8 g/dL Time of 1ST Reevaluation: 01:25 Reevaluation 1ST: Unchanged Patient Education/Counseling: Diagnosis, Treatment, Prognosis Family Education/Counseling: No Family Present Additional Information The following tests were ordered, and results were reviewed by me: TROP -x3, CBC, HIDE CURER, EKG Additional Information was gathered from interviewing the following independent historians: EMS I discussed treatment and results with medical personnel and: patient Comprehensive systems review obtained and negative except for what is stated in the HPI. SEPSIS Sepsis Screen Date sepsis recognized/suspect: Dec 16, 2024 Time Sepsis recognized/suspect: 004 Recent Procedure: No On Antibiotic Therapy: No Respiratory Rate >20: No Heart Rate >90: No Temp<36 C (96.8 F) or >38.3 C: No SBP <90 or MAP <65 mmHG: No New Acute Mental Status Change: No Is the patient on CPAP, BIPAP,: No Physician Orders Electrocardigram (12/16/24 00:59) Vital Signs Date Time Temp Pulse Resp B/P (MAP) Pulse Ox O2 Delivery O2 Flow Rate FiO2 12/16/24 03:13 98.1 66 20 155/70 (98) 97 98.1 12/16/24 01:26 98.1 71 20 162/72 (102) 98 98.1 12/16/24 01:26 72 20 97 Room Air* 0 21 12/16/24 00:47 65 12/16/24 00:40 98.7 68 18 177/90 99 98.7 Laboratory Tests Test 12/16/24 01:15 White Blood Count 6.0 10^3/uL (4.4-10.8) Departure 1 Departure Time of Disposition: 03:20 Impression: Primary Impression: Paresthesia of left arm Disposition: HOME / SELF CARE / HOMELESS Condition: Stable Discharged With: Self Critical Care Note Critical Care Time?: No Stability Stability form required: No I personally scribed for TRUDY RIVAS MD ([email or web address]) on 12/16/24 at 01:03. Electronically submitted by Lindsey Croft ([email or web address]). I personally scribed for TRUDY RIVAS MD ([email or web address]) on 12/16/24 at 01:03. Electronically submitted by Lindsey Croft ([email or web address]). TRUDY RIVAS MD Dec 16, 2024 01:03
[2024-12-16 01:26] VITALS: PULSE 72; RESP 20; O2SAT 97
[2024-12-16 01:27] LABS: Hematocrit 39.4 % (41.0-53.0); Hemoglobin 13.6 g/dL (13.5-17.5); Mean Corpuscular Hemoglobin 28.1 pg (28.0-32.0); Mean Corpuscular Volume 81.6 fL (80.0-100.0); Nucleated Red Blood Cells % 0.1 %
[2024-12-16 01:41] LABS: Alanine Aminotransferase 17 U/L (7-40); Albumin 4.7 g/dL (3.2-4.8); Alkaline Phosphatase 75 U/L (46-116); Anion Gap 11 (5-15); BUN/Creatinine Ratio 9.3 (10.0-20.0); Bilirubin, Total 0.3 mg/dL (0.2-1.0); Blood Urea Nitrogen 10 mg/dL (9-23); Calcium 9.3 mg/dL (8.7-10.4); Carbon Dioxide 24 mmol/L (20-31); Chloride 107 mmol/L (98-107); Glucose 97 mg/dL (74-106); Potassium 3.8 mmol/L (3.5-5.1); Sodium 142 mmol/L (136-145); Total Protein 7.5 g/dL (5.7-8.2)
[2024-12-16 03:13] VITALS: BP 155/70; PULSE 66; RESP 20; TEMP 98.1; O2SAT 97
--- NOTE | 2024-12-16 06:52 | ECG ---
[facility] Test Date: 2024-12-16 Test Time: 00:47:44 Pat Name: JANIS GARRISON Department: [facility] ED Patient ID: [id number] Room: Gender: M Home Care Nurse: LUZMARIA : 1970 Requested By: TRUDY RIVAS Order Number: [id number] Reading MD: Geovani Madden Measurements Intervals [place] Rate: 65 P: 41 [place]: 215 QRS: 61 QRSD: 93 T: 9 QT: 387 QTc: 403 Interpretive Statements Sinus rhythm Prolonged [place] interval Borderline ST elevation, anterior leads Baseline wander in lead(s) I,II,aVR,aVL,aVF Electronically Signed On 12-16-2024 22:31:35 PDT by Geovani Madden Please click the below link to view image of tracing.
== END 2024-12-16 12:12 | disposition home or self-care (01) ==
LOC: EDBD 00:36 → ER 00:38
DX: R20.2 Paresthesia of skin (principal); I25.10 Atherosclerotic heart disease of native coronary artery without angina pectoris; I10 Essential (primary) hypertension; Z79.899 Other long term (current) drug therapy
CPT/HCPCS: 36415; 80053; 84484; 85025; 93005